=== PATIENT | male | born 1965 | race Caucasian/White ===

== ENCOUNTER 2019-06-24 09:25 | Emergency (ER) | payer BC ==
[2019-06-24] MEDS ORDERED: IBUPROFEN 600 MG TABLET PO ONE (10:17)
[2019-06-24] MEDS ORDERED: NORMAL SALINE 1000 ML 1,000 ML IV ONE (10:17)
--- NOTE | 2019-06-24 10:46 | ER Document Report ---
ED Respiratory Problem - General Chief Complaint: Shortness Of Breath Stated Complaint: FEVER, SHORTNESS OF BREATH Time Seen by Provider: 06/24/19 09:54 Primary Care Provider: KOLTON DÍAZ MD [Primary Care Provider] - Follow up as needed Notes: CHIEF COMPLAINT: Cough, fever, shortness of breath for 3 days HPI: 54-year-old male with history of PE who is on Coumadin presenting for evaluation of cough fever and shortness of breath over the last 3 days. Denies chest pain. Denies abdominal pain nausea vomiting. 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 ROS: See HPI - all other systems were reviewed and are otherwise negative Constitutional: Positive fever Eyes: no drainage, no blurred vision ENT: no runny nose, no sore throat Cardiovascular: no chest pain Resp: Positive SOB, positive cough GI: no vomiting, no diarrhea, no abdominal pain : no dysuria Integumentary: no rash Allergy: no hives Musculoskeletal: no extremity pain or swelling Neurological: no numbness/tingling, no weakness MEDICATIONS: I agree with the patient medications as charted by the RN. ALLERGIES: I agree with the allergies as charted by the RN. PAST MEDICAL HISTORY/PAST SURGICAL HISTORY: Reviewed and agree as charted by RN. SOCIAL HISTORY: Reviewed and agree as charted by RN. FAMILY HISTORY: No significant familial comorbid conditions directly related to patient complaint EXAM: Reviewed vital signs as charted by RN. CONSTITUTIONAL: Alert and oriented and responds appropriately to questions. Well-appearing; well-nourished, mild distress secondary to shortness of breath HEAD: Normocephalic; atraumatic EYES: PERRL; Conjunctivae clear, sclerae non-icteric ENT: normal nose; no rhinorrhea; moist mucous membranes; pharynx without lesions noted, no uvula edema or deviation, no tonsillar hypertrophy, phonation normal NECK: Supple without meningismus; non-tender; no cervical lymphadenopathy, no masses CARD: RRR; no murmurs, no clicks, no rubs, no gallops; symmetric distal pulses RESP: Normal chest excursion without splinting or tachypnea; breath sounds clear and equal bilaterally; no wheezes, no rhonchi, no rales, pulse oximetry 96% on room air not hypoxic ABD/GI: Normal bowel sounds; non-distended; soft, non-tender, no rebound, no guarding; no palpable organomegaly or masses. BACK: The back appears normal and is non-tender to palpation, there is no CVA tenderness EXT: Normal ROM in all joints; non-tender to palpation; no cyanosis, no effusions, no edema SKIN: Normal color for age and race; warm; dry; good turgor; no acute lesions noted NEURO: Moves all extremities equally; Motor and sensory function intact PSYCH: The patient's mood and manner are appropriate. Grooming and personal hygiene are appropriate. MDM: 54-year-old male with PE history who is on Coumadin presenting for cough shortness of breath and fever over the last 3 days. A worker in his office had family members who tested positive for coronavirus. Patient himself has not been tested and states the worker in the office was not tested. He is febrile here he is mildly tachycardic will obtain chest x-ray influenza swab, screening labs, will include 1 set of cardiac labs given his history. He is not hypoxic. He reports no significant cardiac history. Will add coronavirus testing given the possibility of exposure and symptoms - Related Data Allergies/Adverse Reactions: Penicillins Allergy (Verified 06/19/13 13:31) UNKNOWN Home Medications: warafarin, lisinopril, lasix, fenofibrate Past Medical History - Social History Smoking Status: Former Smoker Chew tobacco use (# tins/day): No Drug Abuse: None Family History: Reviewed & Not Pertinent Patient has suicidal ideation: No Patient has homicidal ideation: No - Past Medical History Cardiac Medical History: Reports: Hx Hypertension Denies: Hx Heart Attack Pulmonary Medical History: Denies: Hx Asthma Neurological Medical History: Denies: Hx Cerebrovascular Accident, Hx Seizures GI Medical History: Denies: Hx Hepatitis, Hx Hiatal Hernia, Hx Ulcer Infectious Medical History: Denies: Hx Hepatitis Past Surgical History: Reports: Hx Orthopedic Surgery - bilateral knee. Denies: Hx Open Heart Surgery - CATHERIZATION NEG RESULTS, Hx Pacemaker Physical Exam - Vital signs Vitals: Temp Pulse Resp BP Pulse Ox 100.8 F H 112 H 26 H 143/70 H 96 06/24/19 09:30 06/24/19 09:30 06/24/19 09:30 06/24/19 09:30 06/24/19 09:30 Course - Re-evaluation Re-evalutation: 06/24/19 13:07 Testing does not show any acute abnormalities, chest x-ray does not show infiltrate, screening lab work does not show acute emergent abnormalities. Flu test was negative. This does not rule out coronavirus I discussed this at length with the patient. Given the history, and fever and possible contact issues will screen, he is aware to self isolate until he has his test results 06/24/19 13:09 Nursing will check vital signs and let me know of any abnormalities prior to discharge - Vital Signs Vital signs: Temp Pulse Resp BP Pulse Ox 99.7 F 112 H 26 H 143/70 H 97 06/24/19 11:27 06/24/19 09:30 06/24/19 09:30 06/24/19 09:30 06/24/19 10:16 - Laboratory Result Diagrams: 06/24/19 10:44 06/24/19 10:44 Laboratory results interpreted by me: 06/24/19 06/24/19 06/24/19 10:44 10:44 10:44 WBC 12.5 H RDW 14.1 H Lymph % (Auto) 5.1 L Absolute Neuts (auto) 10.6 H Seg Neutrophils % 85.0 H PT 28.7 H Sodium 132.2 L Chloride 97 L Glucose 112 H Alkaline Phosphatase 36 L Discharge - Discharge Clinical Impression: Fever in adult, Upper respiratory infection, viral Condition: Stable Disposition: HOME, SELF-CARE Additional Instructions: Continue to medicate with Tylenol for fever. [id number] medications for cough. Follow-up with primary care provider for reevaluation as discussed call for appointment. You had a coronavirus test sent today, make sure you isolate at home and social distance until you have your test results Referrals: KOLTON DÍAZ MD [Primary Care Provider] - Follow up as needed
--- NOTE | 2019-06-24 11:06 | RADIOLOGY REPORT (SQ) ---
EXAM DESCRIPTION: CHEST SINGLE VIEW IMAGES COMPLETED DATE/TIME: 06/24/2019 10:54 am REASON FOR STUDY: sob COMPARISON: None. EXAM PARAMETERS: NUMBER OF VIEWS: One view. TECHNIQUE: Single frontal radiographic view of the chest acquired. RADIATION DOSE: NA LIMITATIONS: None. FINDINGS: LUNGS AND PLEURA: No opacities, masses or pneumothorax. No pleural effusion. MEDIASTINUM AND HILAR STRUCTURES: No masses. Contour normal. HEART AND VASCULAR STRUCTURES: Heart normal in size. Normal vasculature. BONES: No acute findings. HARDWARE: None in the chest. OTHER: No other significant finding. IMPRESSION: NO ACUTE RADIOGRAPHIC FINDING IN THE CHEST. TECHNICAL DOCUMENTATION: JOB ID: [id number] 2010 [email or web address]- All Rights Reserved Reading location - IP/workstation name: [email or web address]
[2019-06-24 11:17] LABS: ABSOLUTE LYMPHOCYTES (AUTO) 0.6 10^3/uL (0.5-4.7); ABSOLUTE MONOCYTES (AUTO) 1.2 10^3/uL (0.1-1.4); ABSOLUTE NEUT (AUTO) 10.6 10^3/uL (1.7-8.2); BASOPHILS % (AUTO) 0.3 % (0-2); EOSINOPHILS % (AUTO) 0.1 % (0-6); HEMOGLOBIN 14.1 g/dL (13.5-17.0); LYMPHOCYTES % (AUTO) 5.1 % (13-45); MEAN CORPUSCULAR HEMOGLOBIN 30.9 pg (27.0-33.4); MEAN CORPUSCULAR HGB CONC 33.4 g/dL (32.0-36.0); MEAN CORPUSCULAR VOLUME 92 fl (80-97); MONOCYTES % (AUTO) 9.5 % (3-13); PLATELET COUNT 277 10^3/uL (150-450); RED BLOOD COUNT 4.55 10^6/uL (4.35-5.55); RED CELL DISTRIBUTION WIDTH 14.1 % (11.5-14.0); TOTAL CELLS COUNTED % (AUTO) 100 %; WHITE BLOOD COUNT 12.5 10^3/uL (4.0-10.5)
[2019-06-24 11:30] LABS: ALBUMIN 4.1 g/dL (3.5-5.0); ALKALINE PHOSPHATASE 36 U/L (38-126); ANION GAP 9 (5-19); ASPARTATE AMINO TRANSFERASE 26 U/L (17-59); BILIRUBIN,DIRECT 0.1 mg/dL (0.0-0.4); BILIRUBIN,TOTAL 1.2 mg/dL (0.2-1.3); BLOOD UREA NITROGEN 20 mg/dL (7-20); CALCIUM 9.1 mg/dL (8.4-10.2); CARBON DIOXIDE 26 mmol/L (22-30); CHLORIDE 97 mmol/L (98-107); GLUCOSE 112 mg/dL (75-110); POTASSIUM 4.1 mmol/L (3.6-5.0); TOTAL PROTEIN 7.6 g/dL (6.3-8.2)
[2019-06-24 11:30] LABS: A TYPE INFLUENZA AG NEGATIVE (NEGATIVE); B INFLUENZA AG NEGATIVE (NEGATIVE)
[2019-06-24 11:42] LABS: NT PRO BNP 36 pg/mL (<125)
[2019-06-24 11:49] LABS: TROPONIN I < 0.012 ng/mL
[2019-06-24 12:02] LABS: INTERNATIONAL RATION (INR) 2.64; PROTHROMBIN TIME 28.7 SEC (11.4-15.4)
[2019-06-24 13:36] VITALS: BP 122/69
--- NOTE | 2019-06-24 16:21 | EKG REPORT ---
SEVERITY:- BORDERLINE ECG - SINUS RHYTHM BORDERLINE INFERIOR Q WAVES BORDERLINE T ABNORMALITIES, INFERIOR LEADS : Confirmed by: James Levy 24-Jun-2019 16:20:54
== END 2019-06-24 13:36 | disposition home or self-care (01) ==
LOC: ER 09:25
DX: J06.9 Acute upper respiratory infection, unspecified (principal); B97.89 Other viral agents as the cause of diseases classified elsewhere; R06.02 Shortness of breath; R50.9 Fever, unspecified; R05 Cough; I10 Essential (primary) hypertension; Z86.711 Personal history of pulmonary embolism; Z79.01 Long term (current) use of anticoagulants; Z79.899 Other long term (current) drug therapy; Z87.891 Personal history of nicotine dependence; Z20.828 Contact with and (suspected) exposure to other viral communicable diseases
CPT/HCPCS: 93005; 99284; 96360; 36415; 85025; 85610; 87635; 80053; 84484; 87804; 83880; 71045; 93010; J7030